=== PATIENT | female | born 1990 ===

== ENCOUNTER → 2016-03-23 | Outpatient (CLI) | payer MEDICAID, OTHER ==
--- NOTE | 2016-03-23 18:02 | XR ---
EXAMINATION TYPE: XR foot complete LT DATE OF EXAM: 03/23/2016 5:28 PM COMPARISON: NONE HISTORY: Foot pain for a month TECHNIQUE: 3 views FINDINGS: I see no fracture nor dislocation. Joint spaces are fairly normal. There are no erosions. M etatarsals are intact. IMPRESSION: Negative left foot exam.
== END | disposition home or self-care (01) ==
LOC: RADXRMAIN 17:06
PROVIDERS: ATTEND Family Medicine
DX: M79.672 Pain in left foot (principal)

== ENCOUNTER → 2016-08-04 | Outpatient (CLI) | payer MEDICAID ==
--- NOTE | 2016-08-04 19:21 | XR ---
EXAMINATION TYPE: XR chest 2V DATE OF EXAM: 08/04/2016 5:44 PM COMPARISON: NONE HISTORY: Cough TECHNIQUE: Frontal and lateral views of the chest are obtained. FINDINGS: Heart and mediastinum are normal. Lungs are clear. Diaphragm is normal. Bony thorax appear s normal. IMPRESSION: Normal chest
== END | disposition home or self-care (01) ==
LOC: RADXRMAIN 17:27
PROVIDERS: ATTEND Family Medicine
DX: R05 Cough (principal)
CPT/HCPCS: 71020

== ENCOUNTER 2016-08-14 10:51 | Emergency (ER) | payer MEDICAID ==
[2016-08-14] MEDS ORDERED: SODIUM CHLORIDE 0.9% 1,000 ML IV ONE (12:03)
[2016-08-14] MEDS ORDERED: KETOROLAC 30 MG/ML 1 ML VIAL IVP STA (12:03)
--- NOTE | 2016-08-14 12:06 | ED ---
General Adult HPI - General Chief complaint: Recheck/Abnormal Lab/Rx Stated complaint: Left sided Chest Pain Time Seen by Provider: 08/14/16 11:45 Source: patient, RN notes reviewed Mode of arrival: ambulatory Limitations: no limitations - History of Present Illness Initial comments: Patient is 26-year-old female presents emergency room for evaluation. Patient states she woke up around 3 AM this morning with pain in her left upper quadrant. Patient stated the pain is radiating up into her chest and down to her left lower quadrant. Patient does state that she has a history of microscopic colitis. Patient states she had a colonoscopy about a year ago that diagnosed it. Patient denies any constipation or diarrhea. Patient does also states she is a history of PCOS. Patient states she's having slight pain in her left lower quadrant from work, prominent in her left upper quadrant. Patient denies pain or burning during urination, trouble urinating or blood in urine. Patient denies history of kidney stones. Patient denies history of any abdominal surgeries. Patient denies nausea or vomiting. Patient states the pain is very constant but has subsided slightly since being here. Patient denies recent trauma to her ribs or chest. Patient states she's never experienced symptoms like this before. Patient denies fevers or chills. Patient denies lightheadedness or dizziness. - Related Data Home Medications Medication Instructions Recorded Confirmed Levothyroxine Sodium [Synthroid] 75 mcg PO DAILY 12/09/15 08/14/16 Balsalazide Disodium 1,500 mg PO TID-W/MEALS 08/14/16 08/14/16 Ergocalciferol [Vitamin D2] 50,000 unit PO CROCKER 08/14/16 08/14/16 Previous Rx's Medication Instructions Recorded Ibuprofen 600 mg PO Q6HR PRN #20 tablet 08/14/16 Nitrofurantoin Monohyd/M-Cryst 100 mg PO Q12HR 7 Days 08/14/16 [Macrobid] Allergies Allergy/AdvReac Type Severity Reaction Status Date / Time bacitracin [From Polysporin] Allergy Rash/Hives Verified 08/14/16 14:06 polymyxin B [From Polysporin] Allergy Rash/Hives Verified 08/14/16 14:06 Review of Systems ROS Statement: Those systems with pertinent positive or pertinent negative responses have been documented in the HPI. ROS Other: All systems not noted in ROS Statement are negative. Past Medical History Past Medical History: Thyroid Disorder Additional Past Medical History / Comment(s): vertigo, polycystic ovaries, seizure one time 8 yrs ago, had episode of diarrhea for a couple months with abdominal pain, had blood in stool, hx anemia, History of Any Multi-Drug Resistant Organisms: None Reported Past Surgical History: No Surgical Hx Reported Additional Past Anesthesia/Blood Transfusion Reaction / Comment(s): vertigo Past Psychological History: No Psychological Hx Reported Smoking Status: Never smoker Past Alcohol Use History: None Reported Past Drug Use History: None Reported - Past Family History Mother Family Medical History: No Reported History General Exam - General Exam Comments Initial Comments: Sitting in exam room, no distress. Limitations: no limitations General appearance: alert, in no apparent distress Head exam: Present: atraumatic, normocephalic, normal inspection Eye exam: Present: normal appearance ENT exam: Present: normal exam Neck exam: Present: normal inspection Respiratory exam: Present: normal lung sounds bilaterally. Absent: respiratory distress Cardiovascular Exam: Present: regular rate, normal rhythm, normal heart sounds GI/Abdominal exam: Present: soft, tenderness (Left upper quadrant), normal bowel sounds. Absent: distended, guarding, rebound, rigid Extremities exam: Present: normal inspection Back exam: Present: normal inspection, full ROM, CVA tenderness (L). Absent: CVA tenderness (R) Neurological exam: Present: alert, oriented X3, CN II-XII intact Psychiatric exam: Present: normal affect, normal mood Skin exam: Present: warm, dry, intact, normal color. Absent: rash Course Vital Signs 08/14/16 08/14/16 08/14/16 11:07 12:31 14:10 Temperature 97.8 F 98.7 F 98.4 F Pulse Rate 87 81 91 Respiratory 20 16 16 Rate Blood Pressure 128/95 137/92 131/83 O2 Sat by Pulse 98 95 94 L Oximetry EKG Findings - EKG Comments: EKG Findings:: Ventricular rate 83 bpm, QRS duration 82 ms, QT/QTC 370/434 ms Medical Decision Making - Medical Decision Making Patient is a 26-year-old female presents to the emergency room for evaluation of left-sided pain. Patient noted to have hematuria and suspicious for a urinary tract infection. CT abdomen/pelvis ordered to rule out kidney stone. There was evidence noted of possible kidney stone that has passed in the left ureter. Patient states she is feeling better. Will send patient home with antibiotics to treat for urinary tract infection and urology follow-up. Patient states she understands everything that was discussed with her. Return parameters discussed. Case discussed Dr. Lopez. - Lab Data Result diagrams: 08/14/16 11:50 08/14/16 11:50 Lab Results 08/14/16 08/14/16 08/14/16 Range/Units 11:50 11:50 11:50 WBC 11.5 H (3.8-10.6) k/uL RBC 4.26 (3.80-5.40) m/uL Hgb 12.4 (11.4-16.0) gm/dL Hct 38.1 (34.0-46.0) % MCV 89.5 (80.0-100.0) fL MCH 29.2 (25.0-35.0) pg MCHC 32.6 (31.0-37.0) g/dL RDW 15.3 (11.5-15.5) % Plt Count 313 (150-450) k/uL Neutrophils % 78 % Lymphocytes % 15 % Monocytes % 4 % Eosinophils % 2 % Basophils % 1 % Neutrophils # 9.0 H (1.3-7.7) k/uL Lymphocytes # 1.7 (1.0-4.8) k/uL Monocytes # 0.4 (0-1.0) k/uL Eosinophils # 0.3 (0-0.7) k/uL Basophils # 0.1 (0-0.2) k/uL PT (9.0-12.0) sec INR (<1.1) APTT (22.0-30.0) sec Sodium 142 (137-145) mmol/L Potassium 4.4 (3.5-5.1) mmol/L Chloride 108 H (98-107) mmol/L Carbon Dioxide 25 (22-30) mmol/L Anion Gap 9 mmol/L BUN 12 (7-17) mg/dL Creatinine 0.90 (0.52-1.04) mg/dL Est GFR (MDRD) Af Amer >60 (>60 ml/min/1.73 sqM) Est GFR (MDRD) Non-Af >60 (>60 ml/min/1.73 sqM) Glucose 127 H (74-99) mg/dL Calcium 9.5 (8.4-10.2) mg/dL Magnesium (1.6-2.3) mg/dL Total Bilirubin 0.4 (0.2-1.3) mg/dL AST 27 (14-36) U/L ALT 47 (9-52) U/L Alkaline Phosphatase 72 (38-126) U/L Total Creatine Kinase 106 (30-135) U/L CK-MB (CK-2) 0.3 (0.0-2.4) ng/mL CK-MB (CK-2) Rel Index 0.3 Troponin I <0.012 (0.000-0.034) ng/mL Total Protein 7.2 (6.3-8.2) g/dL Albumin 4.3 (3.5-5.0) g/dL Amylase 44 (30-110) U/L Lipase 73 (23-300) U/L Urine Color Urine Appearance (Clear) Urine pH (5.0-8.0) Ur Specific [place] (1.001-1.035) Urine Protein (Negative) Urine Glucose (UA) (Negative) Urine Ketones (Negative) Urine Blood (Negative) Urine Nitrite (Negative) Urine Bilirubin (Negative) Urine Urobilinogen (<2.0) mg/dL Ur Leukocyte Esterase (Negative) Urine RBC (0-5) /hpf Urine WBC (0-5) /hpf Ur Squamous Epith Cells (0-4) /hpf Urine Bacteria (None) /hpf Urine Mucus (None) /hpf Urine HCG, Qual (Not Detectd) 08/14/16 08/14/16 08/14/16 Range/Units 11:50 11:50 12:35 WBC (3.8-10.6) k/uL RBC (3.80-5.40) m/uL Hgb (11.4-16.0) gm/dL Hct (34.0-46.0) % MCV (80.0-100.0) fL MCH (25.0-35.0) pg MCHC (31.0-37.0) g/dL RDW (11.5-15.5) % Plt Count (150-450) k/uL Neutrophils % % Lymphocytes % % Monocytes % % Eosinophils % % Basophils % % Neutrophils # (1.3-7.7) k/uL Lymphocytes # (1.0-4.8) k/uL Monocytes # (0-1.0) k/uL Eosinophils # (0-0.7) k/uL Basophils # (0-0.2) k/uL PT 10.1 (9.0-12.0) sec INR 1.0 (<1.1) APTT 23.5 (22.0-30.0) sec Sodium (137-145) mmol/L Potassium (3.5-5.1) mmol/L Chloride (98-107) mmol/L Carbon Dioxide (22-30) mmol/L Anion Gap mmol/L BUN (7-17) mg/dL Creatinine (0.52-1.04) mg/dL Est GFR (MDRD) Af Amer (>60 ml/min/1.73 sqM) Est GFR (MDRD) Non-Af (>60 ml/min/1.73 sqM) Glucose (74-99) mg/dL Calcium (8.4-10.2) mg/dL Magnesium 2.0 (1.6-2.3) mg/dL Total Bilirubin (0.2-1.3) mg/dL AST (14-36) U/L ALT (9-52) U/L Alkaline Phosphatase (38-126) U/L Total Creatine Kinase (30-135) U/L CK-MB (CK-2) (0.0-2.4) ng/mL CK-MB (CK-2) Rel Index Troponin I (0.000-0.034) ng/mL Total Protein (6.3-8.2) g/dL Albumin (3.5-5.0) g/dL Amylase (30-110) U/L Lipase (23-300) U/L Urine Color Urine Appearance (Clear) Urine pH (5.0-8.0) Ur Specific [place] (1.001-1.035) Urine Protein (Negative) Urine Glucose (UA) (Negative) Urine Ketones (Negative) Urine Blood (Negative) Urine Nitrite (Negative) Urine Bilirubin (Negative) Urine Urobilinogen (<2.0) mg/dL Ur Leukocyte Esterase (Negative) Urine RBC (0-5) /hpf Urine WBC (0-5) /hpf Ur Squamous Epith Cells (0-4) /hpf Urine Bacteria (None) /hpf Urine Mucus (None) /hpf Urine HCG, Qual Not Detected (Not Detectd) 08/14/16 Range/Units 12:35 WBC (3.8-10.6) k/uL RBC (3.80-5.40) m/uL Hgb (11.4-16.0) gm/dL Hct (34.0-46.0) % MCV (80.0-100.0) fL MCH (25.0-35.0) pg MCHC (31.0-37.0) g/dL RDW (11.5-15.5) % Plt Count (150-450) k/uL Neutrophils % % Lymphocytes % % Monocytes % % Eosinophils % % Basophils % % Neutrophils # (1.3-7.7) k/uL Lymphocytes # (1.0-4.8) k/uL Monocytes # (0-1.0) k/uL Eosinophils # (0-0.7) k/uL Basophils # (0-0.2) k/uL PT (9.0-12.0) sec INR (<1.1) APTT (22.0-30.0) sec Sodium (137-145) mmol/L Potassium (3.5-5.1) mmol/L Chloride (98-107) mmol/L Carbon Dioxide (22-30) mmol/L Anion Gap mmol/L BUN (7-17) mg/dL Creatinine (0.52-1.04) mg/dL Est GFR (MDRD) Af Amer (>60 ml/min/1.73 sqM) Est GFR (MDRD) Non-Af (>60 ml/min/1.73 sqM) Glucose (74-99) mg/dL Calcium (8.4-10.2) mg/dL Magnesium (1.6-2.3) mg/dL Total Bilirubin (0.2-1.3) mg/dL AST (14-36) U/L ALT (9-52) U/L Alkaline Phosphatase (38-126) U/L Total Creatine Kinase (30-135) U/L CK-MB (CK-2) (0.0-2.4) ng/mL CK-MB (CK-2) Rel Index Troponin I (0.000-0.034) ng/mL Total Protein (6.3-8.2) g/dL Albumin (3.5-5.0) g/dL Amylase (30-110) U/L Lipase (23-300) U/L Urine Color Yellow Urine Appearance Cloudy H (Clear) Urine pH 5.0 (5.0-8.0) Ur Specific [place] 1.028 (1.001-1.035) Urine Protein 1+ H (Negative) Urine Glucose (UA) Negative (Negative) Urine Ketones Negative (Negative) Urine Blood Moderate H (Negative) Urine Nitrite Negative (Negative) Urine Bilirubin Negative (Negative) Urine Urobilinogen <2.0 (<2.0) mg/dL Ur Leukocyte Esterase Moderate H (Negative) Urine RBC 9 H (0-5) /hpf Urine WBC 56 H (0-5) /hpf Ur Squamous Epith Cells 21 H (0-4) /hpf Urine Bacteria Occasional H (None) /hpf Urine Mucus Few H (None) /hpf Urine HCG, Qual (Not Detectd) - Radiology Data Radiology results: report reviewed, image reviewed Disposition Clinical Impression: Urinary tract infection, Kidney stone Disposition: HOME SELF-CARE Condition: Good Instructions: Kidney Stones (ED), Urinary Tract Infection in Women (ED) Additional Instructions: Drink plenty of water. Take antibiotics as directed. Take ibuprofen as needed for pain. Please follow up with primary care provider or urologist. If any new symptom arises or symptoms worsen, return to ER as soon as possible. Prescriptions: Ibuprofen 600 mg PO Q6HR PRN #20 tablet PRN Reason: Pain Nitrofurantoin Monohyd/M-Cryst [Macrobid] 100 mg PO Q12HR 7 Days Referrals: Ayo Chan DO [Primary Care Provider] - 1-2 days Mickey Wilcox MD [STAFF PHYSICIAN] - 1-2 days Time of Disposition: 14:17
[2016-08-14 12:27] LABS: Basophils # (A) 0.1 k/uL (0-0.2); Basophils % (A) 1 %; CH 29.5; CHCM 33.1; Eosinophils # (A) 0.3 k/uL (0-0.7); Eosinophils % (A) 2 %; HCT 38.1 % (34.0-46.0); HGB 12.4 gm/dL (11.4-16.0); Luc # (Auto) 0.14; Luc % (Auto) 1; Lymphocytes # (A) 1.7 k/uL (1.0-4.8); Lymphocytes % (A) 15 %; MCH 29.2 pg (25.0-35.0); MCHC 32.6 g/dL (31.0-37.0); MCV 89.5 fL (80.0-100.0); Mean Platelet Volume 7.7; Monocytes # (A) 0.4 k/uL (0-1.0); Monocytes % (A) 4 %; Neutrophils % (A) 78 %; RBC 4.26 m/uL (3.80-5.40); RDW 15.3 % (11.5-15.5); WBC 11.5 k/uL (3.8-10.6); WBC (Perox) 11.45
[2016-08-14 12:33] VITALS: RESP 16
[2016-08-14 12:35] LABS: ALT 47 U/L (9-52); AST 27 U/L (14-36); Alkaline Phosphatase 72 U/L (38-126); Amylase 44 U/L (30-110); Anion Gap 9 mmol/L; Blood Urea Nitrogen 12 mg/dL (7-17); Calcium 9.5 mg/dL (8.4-10.2); Carbon Dioxide 25 mmol/L (22-30); Chloride 108 mmol/L (98-107); Glucose 127 mg/dL (74-99); Non-African American GFR(MDRD) >60 (>60 ml/min/1.73 sqM); Potassium 4.4 mmol/L (3.5-5.1); Sodium 142 mmol/L (137-145); Total Bilirubin 0.4 mg/dL (0.2-1.3); Total Protein 7.2 g/dL (6.3-8.2)
[2016-08-14 12:53] LABS: Appearance,Urine Cloudy (Clear); Bacteria,Urine Occasional /hpf; Bilirubin,Urine Negative (Negative); Glucose,Urine (UA) Negative (Negative); Ketones,Urine Negative (Negative); Leukocyte Esterase,Urine Moderate (Negative); Mucus,Urine Few /hpf; Nitrite,Urine Negative (Negative); Particle Count 9793; Protein,Urine 1+ (Negative); RBC,Urine 9 /hpf (0-5); Specific Gravity,Urine 1.028 (1.001-1.035); Squamous Epithelial Cell,Urine 21 /hpf (0-4); UA Billing (MACRO vs. MICRO) MICRO; Urobilinogen,Urine <2.0 mg/dL (<2.0); WBC,Urine 56 /hpf (0-5)
[2016-08-14 12:56] LABS: Partial Thromboplastin Time 23.5 sec (22.0-30.0); Prothrombin Time 10.1 sec (9.0-12.0)
[2016-08-14 13:07] LABS: Creatine Kinase 106 U/L (30-135)
--- NOTE | 2016-08-14 13:07 | XR ---
EXAMINATION TYPE: XR abdomen acute w cxr DATE OF EXAM: 08/14/2016 COMPARISON: NONE HISTORY: Pain TECHNIQUE: Single view of the chest and 2 views of the abdomen are submitted. FINDINGS: Single view of the chest fails demonstrate evidence for acute pulmonary disease. There is no evidence for pneumoperitoneum. The bowel gas pattern is unremarkable as there is air throughout nondilated small and large bowel. No sizeable air fluid levels.No mass effects are seen. No unusual calcifications. IMPRESSION: 1. Unremarkable study.
[2016-08-14 13:19] LABS: Creatine Kinase MB 0.3 ng/mL (0.0-2.4); Troponin I <0.012 ng/mL (0.000-0.034)
--- NOTE | 2016-08-14 14:01 | CT ---
EXAMINATION TYPE: CT abdomen pelvis wo con DATE OF EXAM: 08/14/2016 COMPARISON: NONE HISTORY: Left sided pain today with hematuria CT DLP: 1138.4 mGycm Examination of the solid and hollow viscera is limited given the lack of contrast. FINDINGS: LUNG BASES: No evidence for nodule. No evidence for infiltrate. LIVER/GB: The gallbladder is unremarkable. No space-occupying hepatic lesion. Is evidence for hepatic steatosis. PANCREAS: No pancreatic mass identified. No inflammatory process seen. SPLEEN: No evidence for splenomegaly. No intrasplenic lesions seen. ADRENALS: No adrenal nodules identified. No evidence for thickening. KIDNEYS: No evidence for renal mass. No nephrolithiasis. There is mild fullness of the left renal col lecting system without obstructing calculus. This may reflect recently passed calculus. BOWEL: Appendix has a normal appearance. No evidence of bowel obstruction. No inflammatory process. Lymph nodes: No evidence for adenopathy greater than 1 cm. Abdominal aorta: Atheromatous changes seen. No evidence for aneurysm. Genital organs: No significant abnormality. Other: No significant abnormality. IMPRESSION: There is mild fullness of the left renal collecting system without obstructing calculus. This may ref lect recently passed calculus.
[2016-08-14 14:12] VITALS: BP 131/83; PULSE 91; TEMP 98.4
== END 2016-08-14 14:30 | disposition home or self-care (01) ==
LOC: EC 10:51
DX: N39.0 Urinary tract infection, site not specified (principal); N20.0 Calculus of kidney; E07.9 Disorder of thyroid, unspecified; Z88.8 Allergy status to other drugs, medicaments and biological substances; Z79.899 Other long term (current) drug therapy
CPT/HCPCS: 99285; 96374; 96361 ×2; 36415; 93005; 80053; 82150; 82550; 82553; 83690; 83735; 84484; 85025; 85610; 85730; 81001; 81025; 87086; 74022; 74176; J1885

== ENCOUNTER → 2016-08-20 | Outpatient (CLI) | payer MEDICAID ==
[2016-08-26 07:37] LABS: Mis test requested (Blood) BORDETELLA PERTUSSIS
== END ==
LOC: LABWHC1 15:07
PROVIDERS: ATTEND Family Medicine
DX: R05 Cough (principal)
CPT/HCPCS: 36415; 86615

== ENCOUNTER → 2016-10-06 | Outpatient (CLI) | payer MEDICAID ==
[2016-10-06 15:35] LABS: Basophils # (A) 0.1 k/uL (0-0.2); Basophils % (A) 1 %; CHCM 33.9; Eosinophils # (A) 0.3 k/uL (0-0.7); Eosinophils % (A) 3 %; HCT 40.7 % (34.0-46.0); HDW 2.58; HGB 13.4 gm/dL (11.4-16.0); Luc # (Auto) 0.16; Luc % (Auto) 2; Lymphocytes # (A) 2.6 k/uL (1.0-4.8); Lymphocytes % (A) 25 %; MCH 29.2 pg (25.0-35.0); MCV 88.7 fL (80.0-100.0); Mean Platelet Volume 7.8; Monocytes # (A) 0.5 k/uL (0-1.0); Monocytes % (A) 4 %; Neutrophils # (A) 6.9 k/uL (1.3-7.7); Neutrophils % (A) 66 %; RBC 4.59 m/uL (3.80-5.40); RDW 15.1 % (11.5-15.5); WBC 10.6 k/uL (3.8-10.6); WBC (Perox) 10.49
[2016-10-06 20:06] LABS: Hemoglobin A1C 5.5 % (4.2-6.1)
== END | disposition home or self-care (01) ==
LOC: LABWHC1 15:20
PROVIDERS: ATTEND Family Medicine
DX: I10 Essential (primary) hypertension (principal); D64.9 Anemia, unspecified; R79.9 Abnormal finding of blood chemistry, unspecified
CPT/HCPCS: 36415; 80061; 82785; 83036; 84439; 84443; 85025

== ENCOUNTER → 2017-05-25 | Outpatient (CLI) | payer MEDICAID ==
[2017-05-25 15:50] LABS: ALT 40 U/L (9-52); AST 29 U/L (14-36); Albumin 4.4 g/dL (3.5-5.0); Alkaline Phosphatase 80 U/L (38-126); Anion Gap 14 mmol/L; Blood Urea Nitrogen 14 mg/dL (7-17); Calcium 9.7 mg/dL (8.4-10.2); Carbon Dioxide 25 mmol/L (22-30); Chloride 103 mmol/L (98-107); Glucose 99 mg/dL (74-99); Potassium 4.2 mmol/L (3.5-5.1); Sodium 142 mmol/L (137-145); Total Bilirubin 0.6 mg/dL (0.2-1.3); Total Protein 7.8 g/dL (6.3-8.2)
== END | disposition home or self-care (01) ==
LOC: LABWHC1 15:05
PROVIDERS: ATTEND Internal Medicine Endocrinology, Diabetes & Metabolism
DX: E03.8 Other specified hypothyroidism (principal); E55.9 Vitamin D deficiency, unspecified
CPT/HCPCS: 36415; 80053; 82306; 84443

== ENCOUNTER → 2017-08-22 | Outpatient (CLI) | payer MEDICAID ==
--- NOTE | 2017-08-22 15:25 | XR ---
EXAMINATION TYPE: XR Hip Complete LT DATE OF EXAM: 08/22/2017 COMPARISON: NONE HISTORY: Left hip pain TECHNIQUE: 2 view left hip FINDINGS: Femoral head articulates with the acetabulum. No acute fractures are evident. IMPRESSION: 1. Normal 2 view left hip
--- NOTE | 2017-08-22 15:42 | XR ---
EXAMINATION TYPE: XR lumbar spine 2 or 3V DATE OF EXAM: 08/22/2017 COMPARISON: NONE HISTORY: Left hip pain TECHNIQUE: Three-view lumbar spine FINDINGS: Vertebral body heights are preserved. Disc heights are preserved. There 5 lumbar-type verte bral bodies. The pedicles are intact. Alignment is straightened. IMPRESSION: 1. No acute osseous abnormality lumbar spine
== END | disposition home or self-care (01) ==
LOC: RADXRMAIN 14:37
PROVIDERS: ATTEND Family Medicine
DX: M25.552 Pain in left hip (principal)
CPT/HCPCS: 72100; 73502

== ENCOUNTER → 2017-12-06 | Outpatient (CLI) | payer MEDICAID | END | disposition home or self-care (01) | LOC: LABWHC1 12:50 | PROVIDERS: ATTEND Internal Medicine Endocrinology, Diabetes & Metabolism | DX: E03.8 Other specified hypothyroidism (principal); E55.9 Vitamin D deficiency, unspecified | CPT/HCPCS: 36415; 82306; 84443 ==

== ENCOUNTER → 2018-01-20 | Outpatient (CLI) | payer MEDICAID ==
--- NOTE | 2018-01-20 11:08 | XR ---
EXAMINATION TYPE: XR foot complete RT DATE OF EXAM: 01/20/2018 CLINICAL HISTORY: pain TECHNIQUE: Frontal, lateral and oblique images of the right foot are obtained. COMPARISON: None. FINDINGS: There is no acute fracture/dislocation evident. The joint spaces appear within normal mathis its. The overlying soft tissue appears unremarkable. IMPRESSION: There is no acute fracture or dislocation. ICD 10 NO FRACTURE, INITIAL EVALUATION
== END | disposition home or self-care (01) ==
LOC: RADXRMAIN 10:40
PROVIDERS: ATTEND Family Medicine
DX: S99.921A Unspecified injury of right foot, initial encounter (principal)

== ENCOUNTER → 2018-02-15 | Outpatient (CLI) | payer MEDICAID ==
--- NOTE | 2018-02-15 09:09 | MR ---
EXAMINATION TYPE: MR brain wo con DATE OF EXAM: 02/15/2018 COMPARISON: 03/11/2006, 11/19/2009 HISTORY: Tremors T1-weighted sagittal, T2, FLAIR, and diffusion axial, and T2 coronal coronal views of the brain are s ubmitted. There is no evidence of acute ischemia. The ventricles, basal cisterns, and sulci overlying the conv exities are consistent with the patient's age. There is no mass effect. Craniocervical junction maintained. Sella turcica has a normal appearance. Artifact is seen near the level of the nasal bones likely metallic artifact. No cerebellopontine angle mass. Changes of chronic sinusitis noted. There is a trace amount of fluid surrounding the sella turcica. IMPRESSION: 1. No acute intracranial process. 2. Changes of chronic sinusitis. 3. There is a trace amount of fluid surrounding the optic nerves which is nonspecific. Occasionally c an be seen with increased intracranial benign hypertension. Findings stable from the IAC MRI 2009. Co rrelate clinically.
== END | disposition home or self-care (01) ==
LOC: RADMRIMAIN 08:07
PROVIDERS: ATTEND Psychiatry & Neurology Neurology
DX: G93.2 Benign intracranial hypertension (principal); J32.9 Chronic sinusitis, unspecified
CPT/HCPCS: 70551

== ENCOUNTER → 2018-09-07 | Outpatient (CLI) | payer MEDICAID | END | disposition home or self-care (01) | LOC: LABWHC1 15:22 | PROVIDERS: ATTEND Internal Medicine Endocrinology, Diabetes & Metabolism | DX: E03.8 Other specified hypothyroidism (principal); E55.9 Vitamin D deficiency, unspecified | CPT/HCPCS: 36415; 82306; 84443 ==

== ENCOUNTER → 2019-04-10 | Outpatient (CLI) | payer MEDICAID | END | disposition home or self-care (01) | LOC: LABWHC1 14:15 | PROVIDERS: ATTEND Internal Medicine Endocrinology, Diabetes & Metabolism | DX: E03.8 Other specified hypothyroidism (principal) | CPT/HCPCS: 36415; 84443 ==

== ENCOUNTER → 2020-07-18 | Outpatient (CLI) | payer MEDICAID ==
[2020-07-18 18:40] LABS: Basophils # (A) 0.04 X 10*3/uL (0.00-0.10); Basophils % (A) 0.4 %; Eosinophils # (A) 0.18 X 10*3/uL (0.04-0.35); Eosinophils % (A) 1.9 %; HCT 38.5 % (37.2-46.3); HGB 12.5 g/dL (12.0-15.0); Lymphocytes # (A) 3.49 X 10*3/uL (0.90-5.00); MCH 29.1 pg (27.0-32.0); MCHC 32.5 g/dL (32.0-37.0); MCV 89.5 fL (80.0-97.0); Mean Platelet Volume 11.1 fL (9.5-12.2); Monocytes # (A) 0.72 X 10*3/uL (0.20-1.00); Monocytes % (A) 7.6 %; Neutrophils # (A) 4.92 X 10*3/uL (1.80-7.70); Neutrophils % (A) 52.4 %; Platelet Count 280 X 10*3/uL (140-440); RDW 15.3 % (11.5-14.5); WBC 9.42 X 10*3/uL (4.50-10.00)
[2020-07-18 22:24] LABS: Erythrocyte Sedimentation Rate 10 mm/Hr (0-20)
[2020-07-19 02:59] LABS: Cyclic Citrullinated Pep IgG NEGATIVE (NEGATIVE)
[2020-07-19 04:12] LABS: ALT 32 U/L (8-44); AST 32 U/L (13-35); African American GFR (CKD) 86.3 (60.0-200.0); Albumin/Globulin Ratio 1.92 (1.60-3.17); Alkaline Phosphatase 61 U/L (41-126); C Reactive Protein <0.4 mg/dL (0.0-0.8); Calcium 9.3 mg/dL (8.7-10.3); Carbon Dioxide 23.5 mmol/L (21.6-31.8); Chloride 107 mmol/L (96-109); Globulin 2.4 g/dL (1.6-3.3); Glucose 118 mg/dL (70-110); Non-African American GFR(CKD) 74.5 (60.0-200.0); Rheumatoid Factor, Qnt <4 IU/mL (0-15); Sodium 142 mmol/L (135-145); Total Bilirubin 0.6 mg/dL (0.3-1.2)
== END | disposition home or self-care (01) ==
LOC: LABWHC1 14:46
PROVIDERS: ATTEND Family Medicine
DX: K51.90 Ulcerative colitis, unspecified, without complications (principal); I10 Essential (primary) hypertension; M25.50 Pain in unspecified joint; R60.9 Edema, unspecified
CPT/HCPCS: 36415; 80053; 84439; 84443; 85025; 85652; 86038; 86140; 86200; 86431

== ENCOUNTER → 2020-07-21 | Outpatient (CLI) | payer MEDICAID ==
--- NOTE | 2020-07-21 13:45 | US ---
EXAMINATION TYPE: US venous doppler duplex LE LT DATE OF EXAM: 07/21/2020 1:32 PM COMPARISON: NONE CLINICAL HISTORY: R22.42 SWELLING LLL. Pt states left leg pain and swelling/ no known prior DVT, not on blood thinners SIDE PERFORMED: Left TECHNIQUE: The lower extremity deep venous system is examined utilizing real time linear array sonog juani with graded compression, doppler sonography and color-flow sonography. VESSELS IMAGED: Common Femoral Vein Deep Femoral Vein Greater Saphenous Vein * Femoral Vein Popliteal Vein Small Saphenous Vein * Proximal Calf Veins (* superficial vessels) Left Leg: Negative for DVT IMPRESSION: No evidence of DVT.
== END | disposition home or self-care (01) ==
LOC: RADUSWWP 12:57
PROVIDERS: ATTEND Family Medicine
DX: R22.42 Localized swelling, mass and lump, left lower limb (principal)

== ENCOUNTER → 2020-09-02 | Outpatient (CLI) | payer MEDICAID | END | disposition home or self-care (01) | LOC: LABWHC1 11:35 | PROVIDERS: ATTEND Internal Medicine Endocrinology, Diabetes & Metabolism | DX: E03.8 Other specified hypothyroidism (principal); E55.9 Vitamin D deficiency, unspecified | CPT/HCPCS: 36415; 82306; 84443 ==

== ENCOUNTER → 2020-09-02 | Outpatient (CLI) | payer MEDICAID ==
--- NOTE | 2020-09-02 13:50 | MM ---
Reason for exam: screening (asymptomatic). Baseline mammogram. History: Patient is nulliparous. Family history of breast cancer in maternal aunt at age 30 and breast cancer in paternal aunt at age 40. Took hormonal contraceptives beginning at age 10. Taking progesterone beginning at age 28. Physical Findings: Nurse did not find any significant physical abnormalities on exam. MG 3D Screening Mammo W/Cad Bilateral CC and MLO view(s) were taken. There are scattered fibroglandular densities. There is a right upper outer breast mass at middle depth and ultrasound is recommended. There is a mass in the left upper breast at approximately 12 o'clock and ultrasound is recommended. ASSESSMENT: Incomplete: need additional imaging evaluation, BI-RAD 0 RECOMMENDATION: Ultrasound of both breasts. [facility] will attempt to contact patient to return for ultrasound.
== END | disposition home or self-care (01) ==
LOC: RADMAMWWP 10:52
PROVIDERS: ATTEND Obstetrics & Gynecology
DX: Z12.31 Encounter for screening mammogram for malignant neoplasm of breast (principal); Z80.3 Family history of malignant neoplasm of breast
CPT/HCPCS: 77063; 77067

== ENCOUNTER → 2020-09-09 | Outpatient (CLI) | payer MEDICAID ==
--- NOTE | 2020-09-10 09:36 | USB ---
Reason for exam: additional evaluation requested from abnormal screening. History: Patient is nulliparous. Family history of breast cancer in maternal aunt at age 30 and breast cancer in paternal aunt at age 40. Took hormonal contraceptives beginning at age 10. Taking progesterone beginning at age 28. Physical Findings: Nurse did not find any significant physical abnormalities on exam. US Breast Workup Limited ALYSSA Technologist: Melisa Pabon Left limited breast ultrasound including focal area of concern, retroareolar and axilla demonstrates a 1.4 x 1.1 x 0.9cm lymph node at the axilla, cortex 4.2mm and a 1.7 x 0.8 x 0.9cm lymph node at the axilla, cortex 6.9mm. Right limited breast ultrasound including focal area of concern, retroareolar and axilla demonstrates no cystic or solid lesion seen. Lymph nodes are probably benign reactive from Covid vaccine, follow up ultrasound of left axilla in 6 weeks. Ultrasound axilla follow up 6 weeks. Bilateral diagnostic mammogram in 6 months. These results were verbally communicated with the patient and result sheet given to the patient on 09/09/20. ASSESSMENT: Probably benign, BI-RAD 3 RECOMMENDATION: Ultrasound of the left breast in 2 months. (axilla, 6 weeks) Follow-up diagnostic mammogram of both breasts in 6 months.
== END | disposition home or self-care (01) ==
LOC: RADUSWWP 15:01
PROVIDERS: ATTEND Obstetrics & Gynecology
DX: R92.8 Other abnormal and inconclusive findings on diagnostic imaging of breast (principal); N63.25 Unspecified lump in the left breast, overlapping quadrants; Z80.3 Family history of malignant neoplasm of breast

== ENCOUNTER → 2020-09-16 | Outpatient (CLI) | payer MEDICAID ==
--- NOTE | 2020-09-16 09:37 | US ---
EXAMINATION TYPE: US pelvic complete DATE OF EXAM: 09/16/2020 COMPARISON: CT 08/14/16 CLINICAL HISTORY: E28.2 Polycystic ovarian syndrome. lymphedema TECHNIQUE: Transabdominal (TA). Transabdominal sonographic images of the pelvis were acquired. Date of LMP: approx. 08/26/20 EXAM MEASUREMENTS: Uterus: 10.4 x 6.1 x 5.2 cm Endometrial Stripe: 0.6 cm Right Ovary: 3.2 x 2.4 x 2.0 cm Left Ovary: 3.3 x 2.4 x 2.3 cm 1. Uterus: Anteverted enlarged, heterogeneous texture. Cervical cyst = 1.3 x 1.0 x 0.6 cm 2. Endometrium: wnl 3. Right Ovary: with follicles. Cyst = 2.5 x 1.7 x 1.5 cm 4. Left Ovary: with follicles 5. Bilateral Adnexa: wnl 6. Posterior cul-de-sac: wnl IMPRESSION: 1. Cyst in the right ovary measuring 2.5 cm. 2. Enlarged heterogeneous uterus. No discrete fibroid was seen. 3. Bilateral ovarian follicles. No free fluid.
== END | disposition home or self-care (01) ==
LOC: RADUSWWP 08:51
PROVIDERS: ATTEND Obstetrics & Gynecology
DX: N83.01 Follicular cyst of right ovary (principal); I89.0 Lymphedema, not elsewhere classified
CPT/HCPCS: 76856

== ENCOUNTER → 2020-11-11 | Outpatient (CLI) | payer MEDICAID ==
--- NOTE | 2020-11-11 11:33 | USB ---
Reason for exam: follow-up at short interval from prior study. History: Patient is nulliparous. Family history of breast cancer in maternal aunt at age 30 and breast cancer in paternal aunt at age 40. Took hormonal contraceptives beginning at age 10. Taking progesterone beginning at age 28. Physical Findings: Nurse did not find any significant physical abnormalities on exam. US Breast Axilla LT Left breast axilla ultrasound demonstrates a 1.0 x 1.0cm hypoechoic node at the axilla, stable from 09/09/20. These results were verbally communicated with the patient and result sheet given to the patient on 11/11/20. ASSESSMENT: Probably benign, BI-RAD 3 RECOMMENDATION: Ultrasound of the left breast in 4 months.
== END | disposition home or self-care (01) ==
LOC: RADUSWWP 10:17
PROVIDERS: ATTEND Obstetrics & Gynecology
DX: R92.8 Other abnormal and inconclusive findings on diagnostic imaging of breast (principal)

== ENCOUNTER → 2021-04-21 | Outpatient (CLI) | payer MEDICAID ==
--- NOTE | 2021-04-21 10:44 | MM ---
Reason for exam: follow-up at short interval from prior study. Last mammogram was performed 8 months ago. History: Patient is nulliparous. Family history of breast cancer in maternal aunt at age 30 and breast cancer in paternal aunt at age 40. Took hormonal contraceptives beginning at age 10. Taking progesterone beginning at age 28. Physical Findings: Nurse did not find any significant physical abnormalities on exam. MG 3D Diag Mammo W/Cad ALYSSA Bilateral CC and MLO view(s) were taken. Prior study comparison: September 02, 2020, bilateral MG 3d screening mammo w/cad. There are scattered fibroglandular densities. No significant new findings when compared with previous films. These results were verbally communicated with the patient and result sheet given to the patient on 04/21/21. ASSESSMENT: Benign, BI-RAD 2 RECOMMENDATION: Follow-up diagnostic mammogram of both breasts in 1 year.
== END | disposition home or self-care (01) ==
LOC: RADMAMWWP 09:38
PROVIDERS: ATTEND Obstetrics & Gynecology
DX: R92.8 Other abnormal and inconclusive findings on diagnostic imaging of breast (principal)
CPT/HCPCS: 77062; 77066

== ENCOUNTER → 2021-07-08 | Outpatient (CLI) | payer MEDICAID | END | disposition home or self-care (01) | LOC: LABWHC1 14:20 | PROVIDERS: ATTEND Internal Medicine Endocrinology, Diabetes & Metabolism | DX: E03.8 Other specified hypothyroidism (principal); E55.9 Vitamin D deficiency, unspecified | CPT/HCPCS: 36415; 82306; 84443 ==

== ENCOUNTER → 2022-01-21 | Outpatient (CLI) | payer MEDICAID ==
[2022-01-21 18:25] LABS: Basophils # (A) 0.04 X 10*3/uL (0.00-0.10); Basophils % (A) 0.4 %; Eosinophils # (A) 0.08 X 10*3/uL (0.04-0.35); Eosinophils % (A) 0.8 %; HCT 39.3 % (37.2-46.3); HGB 12.4 g/dL (12.0-15.0); Immature Grans, Automated 0.4 %; Lymphocytes # (A) 2.09 X 10*3/uL (0.90-5.00); Lymphocytes % (A) 21.8 %; MCHC 31.6 g/dL (32.0-37.0); MCV 82.4 fL (80.0-97.0); Mean Platelet Volume 10.7 fL (9.5-12.2); Monocytes # (A) 0.58 X 10*3/uL (0.20-1.00); NRBC Per 100 WBC 0 /100 WBCS (0.0-0.0); Neutrophils # (A) 6.77 X 10*3/uL (1.80-7.70); Neutrophils % (A) 70.6 %; Platelet Count 317 X 10*3/uL (140-440); RBC 4.77 X 10*6/uL (4.10-5.20); RDW 15.9 % (11.5-14.5)
[2022-01-21 18:39] LABS: ALT 16 U/L (8-44); AST 19 U/L (13-35); African American GFR (CKD) 85.7 (60.0-200.0); Albumin 4.2 g/dL (3.8-4.9); Albumin/Globulin Ratio 1.24 (1.60-3.17); Alkaline Phosphatase 75 U/L (41-126); Blood Urea Nitrogen 10.1 mg/dL (9.0-27.0); Calcium 9.2 mg/dL (8.7-10.3); Carbon Dioxide 21.3 mmol/L (20.0-27.5); Chloride 104 mmol/L (96-109); Globulin 3.4 g/dL (1.6-3.3); Glucose 76 mg/dL (70-110); LDL Cholesterol,Calculated 107.3 mg/dL (0.0-131.0); Potassium 3.9 mmol/L (3.5-5.5); Sodium 137 mmol/L (135-145); Total Protein 7.6 g/dL (6.2-8.2); VLDL Calculation 11.66 mg/dL (5.00-40.00)
[2022-01-22 14:45] LABS: Alternaria alternata IgE <0.10 kU/L; Aspergillus fumagatus IgE <0.10 kU/L
[2022-01-22 15:08] LABS: Birch IgE <0.10 kU/L; Cat Epith & Dander IgE <0.10 kU/L; Cladosporian herbarum IgE <0.10 kU/L; Cockroach IgE <0.10 kU/L; Dermato. farinae IgE <0.10 kU/L; Dog Dander IgE <0.10 kU/L; Elm IgE <0.10 kU/L; Maple (Box Elder) IgE 0.19 kU/L; Oak IgE <0.10 kU/L; Ragweed,Common IgE <0.10 kU/L; Red Top (Bentgrass) IgE <0.10 kU/L
[2022-01-22 15:54] LABS: Codfish IgE <0.10 kU/L; Scallop IgE <0.10 kU/L; Shrimp IgE <0.10 kU/L; Walnut IgE (Food) <0.10 kU/L
[2022-01-22 15:56] LABS: Clam IgE <0.10 kU/L; Egg White IgE <0.10 kU/L; Peanut IgE <0.10 kU/L; Soybean IgE <0.10 kU/L
== END | disposition home or self-care (01) ==
LOC: LABWHC1 11:23
PROVIDERS: ATTEND Family Medicine
DX: Z00.00 Encounter for general adult medical examination without abnormal findings (principal)
CPT/HCPCS: 36415; 80053; 80061; 82785; 84439; 84443; 85025; 86003

== ENCOUNTER 2022-07-20 21:14 | Emergency (ER) | payer OTHER, MEDICAID ==
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
[2022-07-20] MEDS ORDERED: Acetaminophen-Codeine 300-30mg TAB PO STA (21:56)
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
[2022-07-20 23:28] LABS: Appearance,Urine Cloudy (Clear); Bilirubin,Urine Negative (Negative); Blood,Urine Trace (Negative); Color,Urine Yellow; Glucose,Urine (UA) Negative (Negative); Ketones,Urine Negative (Negative); Leukocyte Esterase,Urine Negative (Negative); Mucus,Urine Occasional /hpf; Nitrite,Urine Negative (Negative); Protein,Urine Negative (Negative); RBC,Urine 1 /hpf (0-5); Specific Gravity,Urine 1.021 (1.001-1.035); Squamous Epithelial Cell,Urine 6 /hpf (0-4); Urobilinogen,Urine <2.0 mg/dL (<2.0); WBC,Urine 1 /hpf (0-5)
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
[2022-07-21 01:08] VITALS: BP 122/87; PULSE 80; RESP 16; TEMP 98.1
== END 2022-07-21 01:07 | disposition home or self-care (01) ==
LOC: EC 21:14
DX: R07.89 Other chest pain (principal); E07.9 Disorder of thyroid, unspecified; Z79.890 Hormone replacement therapy; Z88.6 Allergy status to analgesic agent; Z88.8 Allergy status to other drugs, medicaments and biological substances; W22.09XA Striking against other stationary object, initial encounter; Y92.410 Unspecified street and highway as the place of occurrence of the external cause
CPT/HCPCS: 70450; 72125; 73502; 81001; 99285

== ENCOUNTER → 2022-07-27 | Outpatient (CLI) | payer OTHER, MEDICAID ==
--- NOTE | 2022-07-27 18:35 | XR ---
EXAMINATION TYPE: XR lumbar spine 3 views DATE OF EXAM: 07/27/2022 Comparison: None Clinical History: 32-year-old female M54.50 Findings: 5 lumbar type vertebral bodies. Scattered mild degenerative disc disease especially upper lumbar spin e and L5-S1. Vertebral body heights are preserved and alignment is maintained. Impression: Scattered mild degenerative disc disease. No vertebral compression collapse or malalignment.
== END | disposition home or self-care (01) ==
LOC: RADXRMAIN 13:29
PROVIDERS: ATTEND Family Medicine
DX: M51.37 Other intervertebral disc degeneration, lumbosacral region (principal)
CPT/HCPCS: 72100

== ENCOUNTER → 2023-01-14 | Outpatient (CLI) | payer MEDICAID | END | disposition home or self-care (01) | LOC: LABWHC1 15:38 | PROVIDERS: ATTEND Internal Medicine Endocrinology, Diabetes & Metabolism | DX: E03.8 Other specified hypothyroidism (principal); E55.9 Vitamin D deficiency, unspecified | CPT/HCPCS: 36415; 82306; 84443 ==

== ENCOUNTER → 2023-08-17 | Outpatient (CLI) | payer MEDICAID | END | disposition home or self-care (01) | LOC: LABWHC1 12:52 | PROVIDERS: ATTEND Internal Medicine Endocrinology, Diabetes & Metabolism | DX: E03.8 Other specified hypothyroidism (principal); E55.9 Vitamin D deficiency, unspecified | CPT/HCPCS: 36415; 82306; 84443 ==